=== PATIENT | male | born 1995 | race Caucasian/White ===

== ENCOUNTER 2016-12-10 23:29 | Emergency (ER) | payer OTHER ==
[2016-12-11 01:36] VITALS: BP 141/82
== END 2016-12-11 01:36 | disposition home or self-care (01) ==
LOC: ED 23:29
DX: S06.0X0A Concussion without loss of consciousness, initial encounter (principal); S01.81XA Laceration without foreign body of other part of head, initial encounter; S01.111A Laceration without foreign body of right eyelid and periocular area, initial encounter; S02.609A Fracture of mandible, unspecified, initial encounter for closed fracture; Y04.2XXA Assault by strike against or bumped into by another person, initial encounter; Y93.89 Activity, other specified; Y92.89 Other specified places as the place of occurrence of the external cause; Y99.8 Other external cause status
CPT/HCPCS: 90715; J2270; Q0162